=== PATIENT | female | born 1995 | race Caucasian/White ===

== ENCOUNTER 2016-08-09 04:01 | Emergency (ER) | payer BC ==
[~2016-08-09] VITALS: Ht 172.7 cm; Wt 59.1 kg
[~2016-08-09 04:01] MED LIST: ADDERALL30 MG PO; KLONOPIN 1MG1 MG PO; NORCO 325 MG-51 TAB PO; PROZAC 10MG10 MG PO; VYVANSE50 MG PO; VYVANSE60 MG PO
[2016-08-09 04:03] VITALS: BP 116/77; PULSE 83; TEMP 98.5
[2016-08-09 04:49] LABS: BASO # 0.1 (0.0-0.2); BASO % 0.6 % (0.0-2.0); EOS # 0.1 (0.0-0.7); GRAN # 4.5 (1.4-6.5); HEMATOCRIT 40.8 % (37.0-47.0); LYMPH # 3.6 (1.2-3.4); LYMPH % 40.7 % (20.0-51.0); MEAN CELL VOLUME 92 fl (80.0-100.0); MEAN CORPUSCULAR HEMOGLOBIN 32 pg (27.0-31.0); MEAN CORPUSCULAR HGB CONC 34 g/dl (33.0-37.0); MEAN PLATELET VOLUME 9.8 fl (7.4-10.4); MONO # 0.6 (0.1-0.6); MONO % 6.5 % (1.7-9.3); PLATELET COUNT 247 K/mm3 (130-400); RED BLOOD COUNT 4.45 M/mm3 (4.10-5.30); REDCELL DISTRIBUTION WIDTH-CV 12.4 % (11.5-14.5); WHITE BLOOD COUNT 8.9 K/mm3 (4.8-10.8)
[2016-08-09 04:55] LABS: PH 6 (5-8); SQUAMOUS EPITHELIAL None Seen /hpf; URINE APPEARANCE Clear; URINE BACTERIA Rare /hpf; URINE BILIRUBIN Negative (NEGATIVE); URINE BLOOD Negative (NEGATIVE); URINE COLOR Colorless; URINE GLUCOSE Negative (NEGATIVE); URINE KETONE Negative (NEGATIVE); URINE RBC 0-2 /hpf; URINE UROBILINOGEN Negative (NEGATIVE); URINE WBC 0-2 /hpf
[2016-08-09 04:59] LABS: ADJUSTED CALCIUM 8.4 mg/dL (8.4-10.2); ALANINE AMINOTRANSFERASE 20 U/L (9-52); ALBUMIN 4.6 gm/dL (3.5-5.0); ALKALINE PHOSPHATASE 65 U/L (50-136); ANION GAP 13 mmol/L (7-16); BILIRUBIN,TOTAL 0.9 mg/dL (0.0-1.0); BLOOD UREA NITROGEN 10 mg/dL (7-17); CALCIUM 8.9 mg/dL (8.4-10.2); CARBON DIOXIDE 24 mmol/L (22-30); CHLORIDE 103 mmol/L (98-107); GLUCOSE 75 mg/dL (74-106); POTASSIUM 3.7 mmol/L (3.4-5.0); SODIUM 140 mmol/L (137-145); TOTAL PROTEIN 7.5 gm/dL (6.4-8.2)
[2016-08-09 05:00] LABS: ACETAMINOPHEN < 10 ug/mL (10-30); AMPHETAMINE URINE POSITIVE; BARBITURATES URINE NEGATIVE; BENZODIAZEPINES URINE NEGATIVE; BUPRENORPHINE URINE NEGATIVE; METHADONE URINE NEGATIVE; OPIATES URINE NEGATIVE; OXYCODONE URINE NEGATIVE; PHENCYCLIDINE URINE NEGATIVE; PROPOXYPHENE URINE NEGATIVE; SALICYLATE < 1.0 mg/dL; THC CANNABINOIDS URINE NEGATIVE
== END 2016-08-09 07:27 | disposition home or self-care (01) ==
LOC: COL.ER 04:01
PROVIDERS: Emergency Medicine
DX: F10.120 Alcohol abuse with intoxication, uncomplicated (principal); R45.851 Suicidal ideations; Y90.4 Blood alcohol level of 80-99 mg/100 ml
CPT/HCPCS: J7030